=== PATIENT | male | born 1940 | race Caucasian/White ===

== ENCOUNTER → 2020-01-17 | Outpatient (CLI) | payer MEDICARE, OTHER | LOC: COL.RAD 09:29 | DX: I35.0 Nonrheumatic aortic (valve) stenosis (principal); I77.810 Thoracic aortic ectasia; I70.1 Atherosclerosis of renal artery | CPT/HCPCS: Q9967 ==

== ENCOUNTER 2021-05-15 00:58 | Emergency (ER) | payer MEDICARE, OTHER ==
[~2021-05-15] VITALS: Ht 175.3 cm; Wt 79.5 kg
[2021-05-15 02:07] VITALS: TEMP 98
[2021-05-15 02:37] LABS: COLLECTION METHOD CLEAN CATCH
[2021-05-15 02:39] LABS: BASO # 0.1 (0.0-0.2); BASO % 0.7 % (0.0-2.0); EOS # 0.3 (0.0-0.7); EOS % 2.2 % (0-4.0); GRAN # 9.2 (1.4-6.5); GRAN % 79.1 % (42.2-75.2); HEMATOCRIT 45.2 % (42.0-52.0); HEMOGLOBIN 15.5 g/dl (13.5-18.0); LYMPH # 1.2 (1.2-3.4); MEAN CELL VOLUME 88 fl (80.0-100.0); MEAN CORPUSCULAR HEMOGLOBIN 30 pg (27.0-31.0); MEAN CORPUSCULAR HGB CONC 34 g/dl (33.0-37.0); MEAN PLATELET VOLUME 10.1 fl (7.4-10.4); MONO # 0.9 (0.1-0.6); MONO % 7.6 % (1.7-9.3); PLATELET COUNT 217 K/mm3 (130-400); RED BLOOD COUNT 5.16 M/mm3 (4.20-5.60); REDCELL DISTRIBUTION WIDTH-CV 13.7 % (11.5-14.5)
[2021-05-15 02:45] LABS: MUCOUS Present /lpf; PH 5 (5-8); SQUAMOUS EPITHELIAL 0-2 /hpf; URINE APPEARANCE Cloudy; URINE BACTERIA None Seen /hpf; URINE BILIRUBIN Negative (NEGATIVE); URINE BLOOD 3+ (NEGATIVE); URINE CALCIUM OXALATE CRYSTAL Present /hpf; URINE COLOR Amber; URINE GLUCOSE Negative (NEGATIVE); URINE KETONE Negative (NEGATIVE); URINE LEUKOCYTE ESTERASE Negative (NEGATIVE); URINE NITRATE Negative (NEGATIVE); URINE PROTEIN(semi-quant) 2+ (NEGATIVE); URINE RBC >50 /hpf
[2021-05-15 02:49] LABS: ALBUMIN 3.9 gm/dL (3.5-5.0); BILIRUBIN,TOTAL 1.4 mg/dL (0.0-1.0); CALCIUM 9.9 mg/dL (8.4-10.2); CREATININE, serum 1.46 (0.66-1.25); POTASSIUM 3.6 mmol/L (3.4-5.0)
[2021-05-15] MEDS ORDERED: FLOMAX 0.40.4 MG/CAP PO (05:58)
[2021-05-15] MEDS ORDERED: ZOFRAN ODT4 MG PO (05:58)
[2021-05-15] MEDS ORDERED: PERCOCET 325 MG1 TA2 PO (05:58)
[2021-05-15 06:10] VITALS: BP 144/70; PULSE 78
== END 2021-05-15 06:10 | disposition home or self-care (01) ==
LOC: COL.ER 00:58
PROVIDERS: Physician Assistant
DX: N13.2 Hydronephrosis with renal and ureteral calculous obstruction (principal); I10 Essential (primary) hypertension; J45.909 Unspecified asthma, uncomplicated
CPT/HCPCS: J2405; J3010; J7030

== ENCOUNTER → 2021-12-10 | Outpatient (CLI) | payer MEDICARE, OTHER ==
[~2021-12-10] MED LIST: FLOMAX 0.40.4 MG/CAP PO; PERCOCET 325 MG1 TA2 PO; ZOFRAN ODT4 MG PO
[2021-12-10 14:05] LABS: CALCIUM 9.5 mg/dL (8.4-10.2); CREATININE, serum 1.14 mg/dL (0.72-1.25); POTASSIUM 4.3 mmol/L (3.5-4.5)
== END ==
LOC: COL.RAD 13:04 → COL.LAB 13:04 → COL.RAD 14:00
PROVIDERS: Nurse Practitioner
DX: I65.23 Occlusion and stenosis of bilateral carotid arteries (principal); J43.9 Emphysema, unspecified; J32.9 Chronic sinusitis, unspecified
CPT/HCPCS: Q9967

== ENCOUNTER → 2024-02-19 | Outpatient (CLI) | payer MEDICARE, OTHER ==
[~2024-02-19] MED LIST changes: +ASPIRIN 81M81 MG/TA2 PO; +Albuterol 0.083% Neb Soln 2.5 MG/3 ML UD IH ONE; +COREG12.5 MG PO; +IMDUR 30MG30 MG/TAB PO; +LIPITOR 80MG80 MG PO; +MICARDIS HCT 121 TAB PO; +Methacholine Vial A (Clear Label Base-Cntrl) IH ONE; +Methacholine Vial B (Red Label) 0.0625 MG/ML 3 ML VIAL.NEB IH ONE; +Methacholine Vial C (Orange Label) 0.25 MG/ML 3 ML VIAL.NEB IH ONE; +Methacholine Vial D (Yellow Label) 1 MG/ML 3 ML VIAL.NEB IH ONE; +Methacholine Vial E (Green Label) 4 MG/ML 3 ML VIAL.NEB IH ONE; +Methacholine Vial F (Blue Label) 16 MG/ML 3 ML VIAL.NEB IH ONE; +PLAVIX 75MG TAB75 MG PO; +PROAIR HFA0.09 MG/AC IH; +REQUIP2 MG PO; +SPIRIVA RE2.5 MCG/Ac IH; +WIXELA 250-501 EACH IH
== END ==
LOC: COL.CARD 09:57
DX: R06.02 Shortness of breath (principal)
CPT/HCPCS: J7674

== ENCOUNTER 2024-08-30 15:00 | Emergency (ER) | payer MEDICARE, OTHER ==
[~2024-08-30] VITALS: Ht 175.3 cm; Wt 81.8 kg
[~2024-08-30 15:00] MED LIST changes: -Albuterol 0.083% Neb Soln 2.5 MG/3 ML UD IH ONE; +COREG 6.256.25 MG/TA PO; -Methacholine Vial A (Clear Label Base-Cntrl) IH ONE; -Methacholine Vial B (Red Label) 0.0625 MG/ML 3 ML VIAL.NEB IH ONE; -Methacholine Vial C (Orange Label) 0.25 MG/ML 3 ML VIAL.NEB IH ONE; -Methacholine Vial D (Yellow Label) 1 MG/ML 3 ML VIAL.NEB IH ONE; -Methacholine Vial E (Green Label) 4 MG/ML 3 ML VIAL.NEB IH ONE; -Methacholine Vial F (Blue Label) 16 MG/ML 3 ML VIAL.NEB IH ONE; +OMEGA-3 1000 MG1 CAP PO
[2024-08-30 15:04] VITALS: TEMP 97.5
[2024-08-30 15:26] LABS: BASO # 0.1 K/mm3 (0.0-0.2); EOS # 0.4 K/mm3 (0.0-0.7); EOS % 4.1 % (0.0-4.0); GRAN # 5.9 K/mm3 (1.4-6.5); HEMATOCRIT 41.7 % (42.0-52.0); HEMOGLOBIN 14.6 g/dl (13.5-18.0); LYMPH # 1.6 K/mm3 (1.2-3.4); LYMPH % 18.7 % (20.0-51.0); MEAN CELL VOLUME 93 fl (80.0-100.0); MEAN CORPUSCULAR HEMOGLOBIN 32 pg (27-31); MEAN CORPUSCULAR HGB CONC 35 g/dl (33.0-37.0); MEAN PLATELET VOLUME 9.8 fl (7.4-10.4); MONO # 0.8 K/mm3 (0.1-0.6); PLATELET COUNT 226 K/mm3 (130-400); REDCELL DISTRIBUTION WIDTH-CV 13.7 % (11.5-14.5)
[2024-08-30 15:36] LABS: INR 1.1 (0.8-3.0); PROTHROMBIN TIME 11.9 SECONDS (9.7-12.8)
[2024-08-30 15:39] LABS: PARTIAL THROMBOPLASTIN TIME 31.4 SECONDS (26.0-37.0)
[2024-08-30 15:47] LABS: ALBUMIN 3.5 g/dL (3.4-4.8); BILIRUBIN,TOTAL 1.3 mg/dL (0.2-1.2); CALCIUM 9.9 mg/dL (8.4-10.2); CREATININE, serum 1.42 mg/dL (0.72-1.25); POTASSIUM 4.6 mEq/L (3.5-4.5); TOTAL PROTEIN 6.7 g/dl (6.2-8.1)
[2024-08-30 15:56] LABS: TROPONIN-I 0.047 ng/mL (0.00-0.033)
[2024-08-30 18:40] VITALS: BP 147/96; PULSE 54
== END 2024-08-30 18:54 | disposition home or self-care (01) ==
LOC: COL.ER 15:00
PROVIDERS: Emergency Medicine
DX: R07.89 Other chest pain (principal); R79.89 Other specified abnormal findings of blood chemistry; R00.1 Bradycardia, unspecified; I49.1 Atrial premature depolarization; F17.200 Nicotine dependence, unspecified, uncomplicated; Z79.01 Long term (current) use of anticoagulants